=== PATIENT | male | born 1935 | race Caucasian/White ===

== ENCOUNTER 2018-06-21 13:57 | Day surgery (SDC) | payer MEDICARE, OTHER ==
[~2018-06-21] VITALS: Ht 170.2 cm; Wt 88.5 kg
[2018-06-21] MEDS ORDERED: NORVASC 10MG10 MG PO (14:37)
[2018-06-21] MEDS ORDERED: ELIQUIS 5MG PO (14:37)
[2018-06-21] MEDS ORDERED: ASPIRIN 81M81 MG/TA2 PO (14:38)
[2018-06-21] MEDS ORDERED: GLUCOTROL 5M5 MG/TAB PO (14:38)
[2018-06-21] MEDS ORDERED: COZAAR100 MG PO (14:38)
[2018-06-21] MEDS ORDERED: ZOCOR 20MG20 MG PO (14:39)
[2018-06-21] MEDS ORDERED: DULCOLAX STOOL100 MG PO (14:39)
[2018-06-21] MEDS ORDERED: STOOL SOFTENER100 M2 PO (14:39)
[2018-06-21] MEDS ORDERED: MELAT3MGTAB PO (14:39)
[2018-06-21] MEDS ORDERED: MYRBETR50MG PO (14:39)
[2018-06-21] MEDS ORDERED: RESTASIS MULTI5.5 ML OP (14:40)
[2018-06-21] MEDS ORDERED: MULTI VITAMINS1 TAB PO (14:40)
[2018-06-21] MEDS ORDERED: CALCIUM CARBON650 M2 PO (14:41)
[2018-06-21 15:05] VITALS: BP 165/80; PULSE 63; TEMP 98.1
[2018-06-21 16:55] VITALS: BP 115/57; PULSE 52; TEMP 97.6
[2018-06-21 17:10] VITALS: BP 127/58; PULSE 56
[2018-06-21 17:25] VITALS: BP 115/69; PULSE 18
== END 2018-06-21 18:00 | disposition home or self-care (01) ==
LOC: SDCO 13:57
DX: C67.2 Malignant neoplasm of lateral wall of bladder (principal); E11.9 Type 2 diabetes mellitus without complications; I10 Essential (primary) hypertension; M19.90 Unspecified osteoarthritis, unspecified site; E78.5 Hyperlipidemia, unspecified; Z90.49 Acquired absence of other specified parts of digestive tract; Z79.01 Long term (current) use of anticoagulants; Z79.84 Long term (current) use of oral hypoglycemic drugs; Z88.0 Allergy status to penicillin; Z85.038 Personal history of other malignant neoplasm of large intestine; Z86.73 Personal history of transient ischemic attack (TIA), and cerebral infarction without residual deficits; Z80.52 Family history of malignant neoplasm of bladder; Z82.3 Family history of stroke; Z84.1 Family history of disorders of kidney and ureter
CPT/HCPCS: J1956; J2405; J2704; J3010; J7030; Q9967

== ENCOUNTER 2019-12-06 13:42 | Day surgery (SDC) | payer MEDICARE, OTHER ==
[~2019-12-06] VITALS: Ht 170.2 cm; Wt 86.1 kg
[~2019-12-06 13:42] MED LIST: ASPIRIN 81M81 MG/TA2 PO; CALCIUM CARBON650 M2 PO; COZAAR100 MG PO; DULCOLAX STOOL100 MG PO; ELIQUIS 5MG PO; GLUCOTROL 5M5 MG/TAB PO; MELAT3MGTAB PO; MULTI VITAMINS1 TAB PO; MYRBETR50MG PO; NORVASC 10MG10 MG PO; RESTASIS MULTI5.5 ML OP; STOOL SOFTENER100 M2 PO; ZOCOR 20MG20 MG PO
[2019-12-06 14:02] VITALS: BP 170/87; PULSE 52; TEMP 98
[2019-12-06 14:54] LABS: CALCIUM 9.4 mg/dL (8.4-10.2); CREATININE, serum 0.93 (0.66-1.25); POTASSIUM 4.1 mmol/L (3.4-5.0)
[2019-12-06] MEDS ORDERED: RAPAFLO8 MG PO (14:55)
[2019-12-06 14:57] LABS: HEMATOCRIT 43.8 % (42.0-52.0); HEMOGLOBIN 15.1 g/dl (13.5-18.0); MEAN CELL VOLUME 98 fl (80.0-100.0); MEAN CORPUSCULAR HEMOGLOBIN 34 pg (27.0-31.0); MEAN CORPUSCULAR HGB CONC 35 g/dl (33.0-37.0); PLATELET COUNT 80 K/mm3 (130-400); RED BLOOD COUNT 4.49 M/mm3 (4.20-5.60)
[2019-12-06] MEDS ORDERED: LASIX 40MG TABL40 MG PO (14:57)
[2019-12-06 15:28] VITALS: BP 162/74; PULSE 45
--- NOTE | 2019-12-06 15:31 | NUR ---
SEE MERGE DOCUMENTATION FOR MEDICATION ADMINISTRATION TIMES AND INTRA/POST PROCEDURE SEDATION ASSESSMENTS.
[2019-12-06 17:00] VITALS: BP 151/68; PULSE 60
--- NOTE | 2019-12-06 17:24 | NUR ---
Pt up to room 317 w/ at bedside. Pt has LT chest pacer site, CDI, arm in sling. LFA INT IV flushes w/o complications. Pt is A&O. LS clear, BSx4. Pt denies any pain, dizziness, SOB, N/V/D. Pt on room air, breathing is even and unlabored. No further needs at this time. Call light within reach.
[2019-12-06 17:30] VITALS: BP 146/66; PULSE 59
[2019-12-06 18:30] VITALS: BP 152/71; PULSE 59
--- NOTE | 2019-12-06 18:32 | NUR ---
Pt VSS, A&O, denies pain, c/o some soreness, ice to site, site still CDI.
--- NOTE | 2019-12-06 20:00 | NUR ---
At time of assessment, patient is resting in bed with at bedside. Patient is alert and oriented and states his pacemaker incision site is sore when he moves it at a level 7/10. He ambulates with walker and gaitbelt to the bathroom with two nurses. He has significant R sided weakness from previous stroke. His L arm remains in sling. Patient becomes dyspnic with exertion and lung sounds are clear when he returns to bed. His bilateral lower extremities are slightly edematous and pedal pulses are palpable at 1. Pacemaker insertion site is dressed with gauze and tape and is CDI. No other concerns at this time, will continue to monitor.
[2019-12-06 21:34] VITALS: BP 122/69; PULSE 65; TEMP 98.3
[2019-12-07 00:53] VITALS: BP 153/66; PULSE 60; TEMP 98
[2019-12-07 05:12] VITALS: BP 145/65; PULSE 60; TEMP 97.7
--- NOTE | 2019-12-07 05:20 | NUR ---
Patient has complained of a headache tonight; Tylenol administered for this. He has slept throughout the night after taking the Tylenol. He has been up to the bathroom once. No other concerns voiced.
[2019-12-07 06:27] LABS: BASO # 0.1 (0.0-0.2); BASO % 0.6 % (0.0-2.0); EOS # 0.2 (0.0-0.7); GRAN # 6.3 (1.4-6.5); GRAN % 72.9 % (42.2-75.2); HEMATOCRIT 42.7 % (42.0-52.0); HEMOGLOBIN 14.7 g/dl (13.5-18.0); LYMPH # 1.2 (1.2-3.4); LYMPH % 14.3 % (20.0-51.0); MEAN CELL VOLUME 98 fl (80.0-100.0); MEAN CORPUSCULAR HEMOGLOBIN 34 pg (27.0-31.0); MEAN CORPUSCULAR HGB CONC 34 g/dl (33.0-37.0); MEAN PLATELET VOLUME 13.9 fl (7.4-10.4); MONO # 0.8 (0.1-0.6); MONO % 9.7 % (1.7-9.3); PLATELET COUNT 75 K/mm3 (130-400); RED BLOOD COUNT 4.36 M/mm3 (4.20-5.60); REDCELL DISTRIBUTION WIDTH-CV 11.9 % (11.5-14.5)
[2019-12-07 06:33] LABS: CALCIUM 9.4 mg/dL (8.4-10.2); CREATININE, serum 0.91 (0.66-1.25); POTASSIUM 4.2 mmol/L (3.4-5.0)
[2019-12-07 07:46] VITALS: BP 180/61; PULSE 61; TEMP 98
--- NOTE | 2019-12-07 08:24 | NUR ---
Patient is alert and oriented. pacemaker chest incision dressing is intact without drainage. patient complain of pain in his neck. he is sitting in chair at the moment.
[2019-12-07] MEDS ORDERED: CLEOCIN HCL300 MG PO (09:33)
[2019-12-07] MEDS ORDERED: COREG 6.256.25 MG/TA PO (09:34)
--- NOTE | 2019-12-07 09:37 | NUR ---
SW met with the patient to discus discharge plan. The patient lives in [place] with his , Magdalena (ph#[phone]). He reports needing some assistance with bathing and has a cane and walker. He states that his helps him with bathing. The patient's PCP is Dr. Eddy Iyer and he receives his medications at [facility]. He reports no difficulties obtaining his meds. The patient's DPOA-HC is in EMR. His DPOA-HC is his . The patient plans to return home with his upon discharge. No additional needs at this time.
[2019-12-07] MEDS ORDERED: LASIX 40MG TABL40 MG PO (09:52)
[2019-12-07] MEDS ORDERED: K-DUR 10 MEQ T10 MEQ PO (09:52)
[2019-12-07 11:10] VITALS: BP 151/63; PULSE 71; TEMP 97.3
--- NOTE | 2019-12-07 11:49 | NUR ---
First visit from the crematorium operator. No needs right now.
--- NOTE | 2019-12-07 15:25 | NUR ---
patient denies any pain. confirms he understand discharge, upcoming appointment and medication instruction. IV discontinued. patient verified he has all his belongings. Patient discharged.
== END 2019-12-07 15:00 | disposition home or self-care (01) ==
LOC: COL.CAR 13:42 → MEDICAL 17:03 → COL.CAR 12-07 15:00
PROVIDERS: Internal Medicine Cardiovascular Disease
DX: I44.2 Atrioventricular block, complete (principal); I10 Essential (primary) hypertension; E78.5 Hyperlipidemia, unspecified; I08.3 Combined rheumatic disorders of mitral, aortic and tricuspid valves; E11.9 Type 2 diabetes mellitus without complications; Z79.84 Long term (current) use of oral hypoglycemic drugs; Z79.899 Other long term (current) drug therapy; Z79.82 Long term (current) use of aspirin; Z87.891 Personal history of nicotine dependence; Z86.73 Personal history of transient ischemic attack (TIA), and cerebral infarction without residual deficits; Z88.6 Allergy status to analgesic agent; Z88.0 Allergy status to penicillin
CPT/HCPCS: OP; C1785; C1894; C1898; J2250; J3010; J3370; J7030; J7050; Q9967

== ENCOUNTER 2020-07-03 16:23 | Inpatient (IN) | payer MEDICARE, OTHER ==
[~2020-07-03] VITALS: Ht 170.2 cm; Wt 85.1 kg
[~2020-07-03 16:23] MED LIST changes: +CLEOCIN HCL300 MG PO; +COREG 6.256.25 MG/TA PO; +K-DUR 10 MEQ T10 MEQ PO; +LASIX 40MG TABL40 MG PO; +RAPAFLO8 MG PO
--- NOTE | 2020-07-03 18:15 | NUR ---
Patient to room via cart by [facility]. Transferred from cart to bed, patient has pain with transfer. Rates pain in right hip 6/. Assisted to comfortable position. Puttocks red, 1cm area noted on buttocks that is a Stage 1 pressure ulcer. Patient reports that he sits on his bottom a lot. Bruising noted to arms and legs. Right leg externally rotated. Pillow placed under right leg for comfort. Oriented to room. calls and med rec obtained as she reviewed meds at home.
[2020-07-03] MEDS ORDERED: LASIX 40MG TABL40 MG PO (18:39)
[2020-07-03] MEDS ORDERED: CALCIUM 600 PLU1 TAB PO (18:44)
[2020-07-03] MEDS ORDERED: DESYREL 50MG50 MG PO (18:45)
[2020-07-03] MEDS ORDERED: COLACE 100100 MG/CAP PO (18:48)
[2020-07-03 19:01] VITALS: BP 168/75; PULSE 78; TEMP 98
[2020-07-03 19:15] LABS: COLLECTION METHOD CATHETER
[2020-07-03 19:24] LABS: PH 7 (5-8); SQUAMOUS EPITHELIAL None Seen /hpf; URINE APPEARANCE Clear; URINE BACTERIA None Seen /hpf; URINE BILIRUBIN Negative (NEGATIVE); URINE BLOOD Negative (NEGATIVE); URINE COLOR Yellow; URINE GLUCOSE Negative (NEGATIVE); URINE KETONE Negative (NEGATIVE); URINE LEUKOCYTE ESTERASE Negative (NEGATIVE); URINE NITRATE Negative (NEGATIVE); URINE PROTEIN(semi-quant) 1+ (NEGATIVE); URINE RBC 0-2 /hpf; URINE UROBILINOGEN Negative (NEGATIVE)
[2020-07-03 19:41] LABS: BASO # 0.1 (0.0-0.2); BASO % 0.3 % (0.0-2.0); EOS # 0.1 (0.0-0.7); EOS % 0.6 % (0-4.0); GRAN # 13.2 (1.4-6.5); GRAN % 81.2 % (42.2-75.2); HEMOGLOBIN 13.8 g/dl (13.5-18.0); LYMPH # 1.4 (1.2-3.4); LYMPH % 8.5 % (20.0-51.0); MEAN CELL VOLUME 97 fl (80.0-100.0); MEAN CORPUSCULAR HEMOGLOBIN 34 pg (27.0-31.0); MEAN CORPUSCULAR HGB CONC 35 g/dl (33.0-37.0); MONO # 1.4 (0.1-0.6); MONO % 8.7 % (1.7-9.3); PLATELET COUNT 102 K/mm3 (130-400); RED BLOOD COUNT 4.02 M/mm3 (4.20-5.60); REDCELL DISTRIBUTION WIDTH-CV 11.9 % (11.5-14.5)
[2020-07-03 19:42] LABS: INR 1.1 (0.8-3.0); PROTHROMBIN TIME 11.8 SECONDS (9.7-12.8)
[2020-07-03 19:48] LABS: ALBUMIN 4.5 gm/dL (3.5-5.0); BILIRUBIN,TOTAL 0.9 mg/dL (0.0-1.0); CALCIUM 9.4 mg/dL (8.4-10.2); CREATININE, serum 0.91 (0.66-1.25); TOTAL PROTEIN 7.6 gm/dL (6.4-8.2)
[2020-07-03 19:55] LABS: PRE ALBUMIN 27.7 mg/dL (17.6-36.0)
--- NOTE | 2020-07-03 21:00 | NUR ---
Received report from GHAZALA Castaneda. Pt is currently lying in bed. Pt has his call light within reach.
--- NOTE | 2020-07-03 22:00 | NUR ---
Pt has been resting well. Dr. Osborne did come by earlier in the shift to see the pt. I called to update her on the pts status and to confirm some of his medications. Dr. Osborne also talked within his at that time. Pt was given pain medication when requested. Pt is currently resting in bed and has his call light within reach.
[2020-07-03 23:55] VITALS: BP 166/72; PULSE 73; TEMP 98.2
[2020-07-04] VITALS (12 sets, daily range): BP systolic 117–170; BP diastolic 47–636; PULSE 63–93; TEMP 97.5–99.3
--- NOTE | 2020-07-04 02:00 | NUR ---
Pt has rested well in bed. Pt is currently sleeping in bed and has his call light within reach.
[2020-07-04 06:32] LABS: HEMOGLOBIN 12.1 g/dl (13.5-18.0); MEAN CELL VOLUME 98 fl (80.0-100.0); MEAN CORPUSCULAR HEMOGLOBIN 34 pg (27.0-31.0); MEAN CORPUSCULAR HGB CONC 35 g/dl (33.0-37.0); MEAN PLATELET VOLUME 13.8 fl (7.4-10.4); PLATELET COUNT 87 K/mm3 (130-400); RED BLOOD COUNT 3.53 M/mm3 (4.20-5.60); REDCELL DISTRIBUTION WIDTH-CV 12.1 % (11.5-14.5)
--- NOTE | 2020-07-04 06:35 | NUR ---
Pt is currently resting in bed. Pt did request something for pain this morning and pt was given pain medication . Pt stated that when the pain started it was at a 8. Pt has his call light within reach and his bed is in lowest position.
[2020-07-04 06:41] LABS: CALCIUM 8.7 mg/dL (8.4-10.2); CREATININE, serum 0.93 (0.66-1.25); MAGNESIUM 2.3 mg/dL (1.6-2.3); POTASSIUM 4.1 mmol/L (3.4-5.0)
[2020-07-04 06:42] LABS: HEMATOCRIT 34.7 % (42.0-52.0)
[2020-07-04 07:24] LABS: BASO % 0.2 % (0.0-2.0); EOS % 0.2 % (0-4.0); GRAN # 7.9 (1.4-6.5); GRAN % 73.7 % (42.2-75.2); LYMPH # 1.6 (1.2-3.4); LYMPH % 14.8 % (20.0-51.0); MONO # 1.1 (0.1-0.6); MONO % 10.4 % (1.7-9.3)
--- NOTE | 2020-07-04 07:52 | NUR ---
Dr Santizo notified of consult.
--- NOTE | 2020-07-04 09:16 | NUR ---
Dr. Renee in to see patient.
--- NOTE | 2020-07-04 11:13 | NUR ---
SW met with the patient to discuss discharge plan. The patient [place] outside of [place] with his , Magdalena ([phone]). He reports independence with ADLs prior to his fall and has a cane and walker. The patient's PCP is Dr. Eddy Iyer and he receives his medications at [facility]. He reports no difficulties obtaining his meds. The patient's DPOA-HC is in EMR. His DPOA-HC is his . The patient had a right hip fracture. SW discussed post-acute rehab. The patient appeared to be in pain. The patient asked that we discuss rehab at a later time and that he needs to discuss this with his family. VIVIAN then contacted and reviewed the d/c plan with his , Magdalena. Magdalena reports that she will be up to the hospital this afternoon and requested that SW come follow up with her then about the d/c plan. SW to continue to follow.
--- NOTE | 2020-07-04 13:12 | NUR ---
Dr Santizo here to see patient.
--- NOTE | 2020-07-04 14:38 | NUR ---
Ok per Dr Renee to proceed with hip repair.
--- NOTE | 2020-07-04 15:26 | NUR ---
Patient to surgery at 1500 on bed with surgical staff.
--- NOTE | 2020-07-04 15:52 | NUR ---
The patient's already left the hospital. SW contacted the patient's , Magdalena, to review d/c plan and to discuss post-acute rehab. Magdalena is agreeable to rehab and chose [facility]. She states that her family will be able to transport the patient to [facility]. She did not have a second preference at this time. VIVIAN informed Magdalena that SW would place Medicare.gov's list of SNF's in the patient's room. Magdalena verbalized understanding and states that she will be back up to the hospital tomorrow afternoon.
--- NOTE | 2020-07-04 17:58 | NUR ---
Patient returns from hip repair at 1700. Assessment unchanged except for right hip incision with dressing CDI. Pulses palpable to RLE. Neuro is intact.
[2020-07-05] VITALS (7 sets, daily range): BP systolic 94–143; BP diastolic 44–88; PULSE 63–72; TEMP 97.1–98.4
--- NOTE | 2020-07-05 02:09 | NUR ---
Pt currently sleeping in bed pt. Pt was just asked if he was having any pain. Pt stated that he was sleeping and he didn't think he needed anythig right now. Pt mouth was dry so he was encourged to take a few sips of water. Pt has his call light within reach. His legs are elevated and he has ice applied to his right hip. His APRIL hoses are on and his SCD's are on. Pt did have some confusion throughout the night but he is better now.
--- NOTE | 2020-07-05 03:57 | NUR ---
Pt was just asked again if he was having any pain. Fresh ice as applied to pt right hip at this time. Pt has his call light within reach.
[2020-07-05 07:19] LABS: HEMOGLOBIN 11.6 g/dl (13.5-18.0); MEAN CELL VOLUME 101 fl (80.0-100.0); MEAN CORPUSCULAR HEMOGLOBIN 35 pg (27.0-31.0); MEAN CORPUSCULAR HGB CONC 34 g/dl (33.0-37.0); MEAN PLATELET VOLUME 14.2 fl (7.4-10.4); PLATELET COUNT 56 K/mm3 (130-400); RED BLOOD COUNT 3.35 M/mm3 (4.20-5.60); REDCELL DISTRIBUTION WIDTH-CV 12.2 % (11.5-14.5)
[2020-07-05 07:21] LABS: HEMATOCRIT 33.9 % (42.0-52.0)
[2020-07-05 07:30] LABS: CALCIUM 8.6 mg/dL (8.4-10.2); CREATININE, serum 0.99 (0.66-1.25)
--- NOTE | 2020-07-05 07:30 | NUR ---
Pt has had a good night he did request something for pain at this time and was given medication at this time. Pt was able to tolerate applesause and elif crackers this morning so his diet was advanced this morning. He has his call light within reach.
[2020-07-05 07:56] LABS: LYMPHOCYTE 6 % (20.0-51.0); NEUTROPHILS 82 % (42.0-75.2); PLATELET ESTIMATE DECREASED (NORMAL)
--- NOTE | 2020-07-05 10:18 | NUR ---
Patient up to chair. Max 1-2 assist. Stage 1 pressure ulcer on patients bottom. Dressing intact. Will continue to monitor and reposition patient.
--- NOTE | 2020-07-05 14:45 | NUR ---
RA SPO2 84% PLACED ON 2 LPM NC 91% ASLEEP. RN NOTIFIED
--- NOTE | 2020-07-05 14:54 | NUR ---
Diesel Scoop Operator contacted Yuki at [facility] and faxed clinical updates. Yuki reports that they are able to accept patient and can admit if patient discharges Wednesday or Wednesday. VIVIAN met with patient and patient's , Magdalena to provide update. They are both in agreement with discharge plan to [facility] once cleared for discharge. VIVIAN will continue to follow.
--- NOTE | 2020-07-05 19:19 | NUR ---
Patient repositioned to his left side. Patient has no complains of pain and tolerated dinner well.
--- NOTE | 2020-07-05 20:15 | NUR ---
Pt. laying in bed at this time. Pt. is A&OX3, assessment complete. INT to rt. wrist patent. Dressing to rt. hip CDI. Pt. has a mepilex to coccyx, CDI. Pt. repostioned for comfort. Pt. denies further needs, call light within reach.
[2020-07-06 03:33] VITALS: BP 139/54; PULSE 66; TEMP 97.9
[2020-07-06 05:57] LABS: BASO % 0.3 % (0.0-2.0); EOS # 0.3 (0.0-0.7); EOS % 2.9 % (0-4.0); GRAN # 8.5 (1.4-6.5); GRAN % 75.7 % (42.2-75.2); HEMOGLOBIN 10.3 g/dl (13.5-18.0); LYMPH # 1.4 (1.2-3.4); LYMPH % 12.3 % (20.0-51.0); MEAN CELL VOLUME 99 fl (80.0-100.0); MEAN CORPUSCULAR HEMOGLOBIN 34 pg (27.0-31.0); MEAN CORPUSCULAR HGB CONC 35 g/dl (33.0-37.0); MEAN PLATELET VOLUME 13.9 fl (7.4-10.4); MONO # 0.9 (0.1-0.6); MONO % 8.4 % (1.7-9.3); PLATELET COUNT 52 K/mm3 (130-400); RED BLOOD COUNT 2.99 M/mm3 (4.20-5.60); REDCELL DISTRIBUTION WIDTH-CV 12.1 % (11.5-14.5)
[2020-07-06 06:00] LABS: HEMATOCRIT 29.6 % (42.0-52.0)
[2020-07-06 06:08] LABS: CALCIUM 8.4 mg/dL (8.4-10.2); CREATININE, serum 1.14 (0.66-1.25); POTASSIUM 4.1 mmol/L (3.4-5.0)
--- NOTE | 2020-07-06 07:11 | NUR ---
Patient request assistance to sit up in bed to eat breakfast. Alert and oriented x4. Denies pain at this time. Dressing to right hip CDI. Bruising noted to right hip. Cerrato to dependent drainage with clear yellow urine in bag. Buttocks red, Mepilex in place. Patient repositioned in bed. Assisted to upright position to eat. Patient says that he is not normally on oxygen, removed at this time and explain that we will assess his oxygen level in a little bit. Patient denies additional needs at this time.
[2020-07-06 07:38] VITALS: BP 133/49; PULSE 78; TEMP 97.8
--- NOTE | 2020-07-06 07:40 | NUR ---
SpO2 around 89-90%. Oxygen reapplied at 2L/NC.
[2020-07-06] MEDS ORDERED: ASPI325T6 PO (10:24)
[2020-07-06] MEDS ORDERED: TYLENOL 325MG325 MG PO (10:27)
[2020-07-06] MEDS ORDERED: NORCO 325 MG-51 TAB PO (10:27)
[2020-07-06] MEDS ORDERED: SENNA-S 50 MG-81 TAB PO (10:29)
--- NOTE | 2020-07-06 10:39 | NUR ---
Report called to GHAZALA Shelton, at [facility]. They are going to provide the family with a wheel chair and oxygen for transport.
[2020-07-06 10:40] VITALS: BP 133/49; PULSE 78; TEMP 97.8
[2020-07-06 11:37] VITALS: BP 124/61; PULSE 88; TEMP 97.9
--- NOTE | 2020-07-06 12:30 | NUR ---
Patient has been up to [facility] numerous times thinking he needed to have BM, unsuccessful each time. Patient requires full assist of two with transfers, has very difficult time moving right leg and keeping under him, very unsteady.
--- NOTE | 2020-07-06 13:27 | NUR ---
SW informed that patient would be discharging on this day 07-06-20 to [facility]. SW called to confirm transfer with [facility] staff, and faxed documentation to facility. SW also provided nurse of patient with report number to staff at [facility]. SW called spouse to inform of patient's updated information of discharge and transport. provided that she would be assisting with transport of patient to [facility] at approx. 1pm. Nothing further.
--- NOTE | 2020-07-06 13:51 | NUR ---
Patient's and son here to take patient to [facility]. brought wheel chair and oxygen. Patient transferred to wheel chair with assist of two, oxygen applied. Patient assisted out to POV by GHAZALA Mcmahon, and SHONNA Weiss. Son out with the van that is wheel chair accessible. Patient has all belongings. Discharge packet provided to patient and family to provide to [facility].
== END 2020-07-06 13:56 | disposition swing bed (61) | DRG 481 ==
LOC: SURG 18:15
PROVIDERS: Internal Medicine; Physician Assistant; ADMIT Student in an Organized Health Care Education/Training Program
PROC: 0QS634Z Reposition Right Upper Femur with Internal Fixation Device, Percutaneous Approach (ICD-10-PCS; principal; 2020-07-03)
DX: S72.001A Fracture of unspecified part of neck of right femur, initial encounter for closed fracture (principal); I69.354 Hemiplegia and hemiparesis following cerebral infarction affecting left non-dominant side; E87.1 Hypo-osmolality and hyponatremia; I44.2 Atrioventricular block, complete; I82.C12 Acute embolism and thrombosis of left internal jugular vein; I10 Essential (primary) hypertension; E78.5 Hyperlipidemia, unspecified; M19.90 Unspecified osteoarthritis, unspecified site; E11.9 Type 2 diabetes mellitus without complications; D69.6 Thrombocytopenia, unspecified; Z66 Do not resuscitate; I77.819 Aortic ectasia, unspecified site; N40.0 Benign prostatic hyperplasia without lower urinary tract symptoms; Z79.84 Long term (current) use of oral hypoglycemic drugs; Z88.0 Allergy status to penicillin; Z95.0 Presence of cardiac pacemaker; Z88.5 Allergy status to narcotic agent; Z85.038 Personal history of other malignant neoplasm of large intestine
CPT/HCPCS: 99222-AI; 99232-AI; A9284; C1713; J0690; J1815; J2270; J2704; J3010; J7030